=== PATIENT | female | born 1940 | race Caucasian/White ===

== ENCOUNTER 2018-07-04 06:50 | Emergency (ER) | payer OTHER ==
[~2018-07-04] VITALS: Ht 160 cm; Wt 117.9 kg
[2018-07-04 08:26] LABS: Basophils # (auto) 0.1 uL; Basophils % (auto) 0.4 % (0.0-2.0); Eosinophils # (auto) 0 uL; Eosinophils % (auto) 0.2 % (0.0-7.0); Hematocrit 39.1 % (36.0-46.0); Hemoglobin 12.5 g/dL (12.2-16.2); Lymphocytes # (auto) 0.9 uL; Lymphocytes % (auto) 6.7 % (10.0-50.0); Mean Corpuscular Hemoglobin 27.1 pg (28.0-32.0); Mean Corpuscular Hgb Conc. 32.1 g/dL (32.0-36.0); Mean Corpuscular Volume 84.3 fL (80.0-100.0); Monocytes # (auto) 0.5 uL; Neutrophils % (auto) 88.7 % (37.0-80.0); Platelet Count (auto) 281 10^3/uL (140-450); Red Blood Cells 4.63 10^6/uL (4.0-5.20); Red Cell Distribution Width 15.8 % (11.8-14.3); White Blood Cell 13.5 10^3/uL (4.4-10.8)
[2018-07-04 08:48] LABS: Albumin 3.2 g/dL (3.4-5.0); Calcium 8.4 mg/dL (8.5-10.1); Magnesium 1.8 mg/dL (1.6-2.6); Potassium 4.7 mmol/L (3.5-5.1)
[2018-07-04 08:53] LABS: BUN/Creatinine Ratio 21.4; Bilirubin, Total 0.8 mg/dL (0.2-1.0); Total Protein 7.7 g/dL (6.4-8.2)
[2018-07-04] MEDS ORDERED: SODIUM CHLORIDE 0.9% 1,000 ML IV ONE (09:15)
[2018-07-04] MEDS ORDERED: PIPERACILLIN-TAZOB 3.375GM 100 ML IV ONE (09:30)
[2018-07-04 10:44] LABS: Urine Bacteria FEW /hpf (None Seen); Urine Blood 2+ /uL (Negative); Urine Hyaline Cast FEW /lpf (0 - 2); Urine Specific Gravity 1.023 (1.001-1.035); Urine WBC 20 /hpf (0 - 5)
[2018-07-04] MEDS ORDERED: VANCOMYCIN 1GM/250ML 250 ML IV ONE (12:00)
[2018-07-04] MEDS ORDERED: ALBUTEROL SULF 2.5 MG/0.5ML(0.5%) NEB SOLN NEB ONE (13:30)
[2018-07-04] MEDS ORDERED: FUROSEMIDE 40 MG TAB PO ONE (14:30)
[2018-07-04 15:41] VITALS: BP 159/74
== END 2018-07-04 18:03 | disposition home or self-care (01) ==
LOC: EDBD 06:50 → ER 06:50
DX: J18.9 Pneumonia, unspecified organism (principal); M25.562 Pain in left knee; M25.561 Pain in right knee; G89.11 Acute pain due to trauma; E11.9 Type 2 diabetes mellitus without complications; I10 Essential (primary) hypertension; W06.XXXA Fall from bed, initial encounter; Y93.89 Activity, other specified; Y92.89 Other specified places as the place of occurrence of the external cause; Y99.8 Other external cause status
CPT/HCPCS: 36415; 71045; 73562; 80053; 81001; 83735; 83880; 84484; 85025; 87040; 93005; 94640; 96365; 96366; 96368; 99284; J2543; J3370; J7030; J7611

== ENCOUNTER 2019-07-12 10:37 | Inpatient (IN) | payer OTHER ==
[~2019-07-12] VITALS: Ht 162.6 cm; Wt 104.3 kg
[2019-07-12] MEDS ORDERED: SODIUM CHLORIDE 0.9% 1,000 ML IV ONE (11:18)
[2019-07-12 11:38] LABS: Basophils # (auto) 0.1 10 ^3/uL (0-0.2); Basophils % (auto) 0.6 % (0.0-2.0); Eosinophils # (auto) 0.1 10 ^3/uL (0-0.8); Lymphocytes # (auto) 1.7 10 ^3/uL (0.4-5.4); Mean Corpuscular Hgb Conc. 31.5 g/dL (32.0-36.0); Monocytes # (auto) 0.3 10 ^3/uL (0-1.3); Neutrophils # (auto) 7.6 10 ^3/uL (1.6-8.6); White Blood Cell 9.8 10^3/uL (4.4-10.8)
[2019-07-12 11:40] LABS: Eosinophils % (auto) 1.2 % (0.0-7.0); Hematocrit 37.9 % (36.0-46.0); Lymphocytes % (auto) 17.1 % (10.0-50.0); Mean Corpuscular Hemoglobin 26.3 pg (28.0-32.0); Mean Corpuscular Volume 83.4 fL (80.0-100.0); Monocytes % (auto) 3.3 % (0.0-12.0); Neutrophils % (auto) 77.8 % (37.0-80.0); Nucleated Red Blood Cells % 0.1 %; Platelet Count (auto) 332 10^3/uL (140-450); Red Blood Cells 4.55 10^6/uL (4.0-5.20); Red Cell Distribution Width 18.1 % (11.8-14.3)
[2019-07-12 11:54] LABS: INR 1.14 (0.9-1.15); Partial Thromboplastin Time 27.8 sec (23.64-32.05)
[2019-07-12 12:02] LABS: Albumin 2.8 g/dL (3.4-5.0); Anion Gap 3 (5-15); Blood Urea Nitrogen 31 mg/dL (7-18); Calcium 7.8 mg/dL (8.5-10.1); Carbon Dioxide 29 mmol/L (21-32); Chloride 107 mmol/L (98-107); Glucose 151 mg/dL (74-106); Potassium 4.7 mmol/L (3.5-5.1); Sodium 139 mmol/L (136-145)
[2019-07-12 12:08] LABS: Alanine Aminotransferase 20 U/L (13-56); Alkaline Phosphatase 95 U/L (45-117); Aspartate Aminotransferase 14 U/L (15-37); BUN/Creatinine Ratio 28.2; Bilirubin, Total 0.5 mg/dL (0.2-1.0); GFR African American 62 mL/min; GFR Non-African American 51 mL/min; Total Protein 7.5 g/dL (6.4-8.2)
[2019-07-12] MEDS ORDERED: FUROSEMIDE 40 MG/4 ML VIAL IV ONE (13:15)
[2019-07-12] MEDS ORDERED: SPIRONOLACTONE 25 MG TAB PO ONE (13:15)
[2019-07-12] MEDS ORDERED: METOPROLOL TARTRATE 1MG/1ML-5ML VIAL IV ONE (13:15)
[2019-07-12] MEDS: MAGNESIUM SULFATE 1GM/100ML 100 ML IV SCH ×2 (13:32→14:26)
[2019-07-12 13:52] LABS: Urine Bacteria NONE SEEN /hpf (None Seen); Urine Blood 1+ /uL (Negative); Urine Hyaline Cast FEW /lpf (0 - 2); Urine Mucus FEW (None Seen); Urine Specific Gravity 1.011 (1.001-1.035); Urine WBC 1 /hpf (0 - 5)
[2019-07-12] MEDS ORDERED: ATOR10TA52 (16:08)
[2019-07-12] MEDS ORDERED: SERT-274 PO (16:08)
[2019-07-12] MEDS ORDERED: LISI10TA6 PO (16:08)
[2019-07-12] MEDS ORDERED: GABA300C10 PO (16:08)
[2019-07-12] MEDS ORDERED: ALBUTEROL SULF 2.5 MG/0.5ML(0.5%) NEB SOLN NEB SCH (16:15)
[2019-07-12] MEDS ORDERED: hydrALAZINE HCL 20 MG/ML VL IV PRN (16:15)
[2019-07-12] MEDS ORDERED: MORPHINE SULF INJ 2 MG/ML SYRINGE 1ML IV PRN (16:15)
[2019-07-12] MEDS ORDERED: METOPROLOL SUCCINATE XL 50 MG TAB PO ONE (16:15)
[2019-07-12] MEDS ORDERED: NITROGLYCERIN 0.4 MG SL TAB SL PRN (16:15)
[2019-07-12] MEDS ORDERED: DEXTROSE (50%) 50ML SYRG IV PRN (16:15)
[2019-07-12 16:27] VITALS: BP 190/93
[2019-07-12 17:10] VITALS: BP 164/86
[2019-07-12 17:39] VITALS: BP 164/86
[2019-07-12] MEDS: FUROSEMIDE 100 MG/10ML VIAL IV SCH (18:00)
[2019-07-12] MEDS: ALBUTEROL SULF 2.5 MG/0.5ML(0.5%) NEB SOLN NEB SCH (18:11)
[2019-07-12] MEDS: SERTRALINE HCL 50 MG TAB PO SCH (18:24)
[2019-07-12] MEDS: LISINOPRIL 10 MG TAB PO SCH (18:24)
[2019-07-12] MEDS: GABAPENTIN 300 MG CAP PO SCH (18:24)
[2019-07-12] MEDS: ACCU-CHEK COMFORT CURVE STRIP VI SCH ×2 (18:25→23:09)
[2019-07-12] MEDS: InsuLIN REG 1unit/0.01ml Soln (100units/ml) SC SCH ×2 (19:29→22:00)
[2019-07-13] MEDS: ALBUTEROL SULF 2.5 MG/0.5ML(0.5%) NEB SOLN NEB SCH ×3 (00:16→13:21)
[2019-07-13 05:30] VITALS: BP 144/73
[2019-07-13] MEDS: ACCU-CHEK COMFORT CURVE STRIP VI SCH ×3 (06:18→16:59)
[2019-07-13] MEDS: FUROSEMIDE 100 MG/10ML VIAL IV SCH ×2 (06:18→16:59)
[2019-07-13] MEDS: InsuLIN REG 1unit/0.01ml Soln (100units/ml) SC SCH ×3 (06:18→16:59)
[2019-07-13 08:31] VITALS: BP 173/88
[2019-07-13] MEDS: GABAPENTIN 300 MG CAP PO SCH (09:56)
[2019-07-13] MEDS: SERTRALINE HCL 50 MG TAB PO SCH (09:57)
[2019-07-13] MEDS: LISINOPRIL 10 MG TAB PO SCH (09:57)
[2019-07-13] MEDS ORDERED: POTASSIUM CHL 20 Meq TABLET PO SCH (10:00)
[2019-07-13] MEDS ORDERED: ENOXAPARIN SOD 40 MG/0.4 ML SYRINGE SC SCH (10:00)
[2019-07-13 12:11] VITALS: BP 166/76
[2019-07-13] MEDS ORDERED: LISINOPRIL 10 MG TAB PO SCH (13:00)
[2019-07-13] MEDS ORDERED: FUROSEMIDE 40 MG/4 ML VIAL IV SCH (13:15)
[2019-07-13 16:42] VITALS: BP 167/84
== END 2019-07-13 16:56 | disposition home health service (06) | DRG 291 ==
LOC: ER 10:37 → TELE 10:38 → TELE-CENTR 17:12
PROVIDERS: ADMIT Hospitalist; ATTEND Hospitalist
DX: I11.0 Hypertensive heart disease with heart failure (principal); J96.01 Acute respiratory failure with hypoxia; E44.0 Moderate protein-calorie malnutrition; E11.21 Type 2 diabetes mellitus with diabetic nephropathy; E83.42 Hypomagnesemia; I50.9 Heart failure, unspecified; E78.5 Hyperlipidemia, unspecified; F32.9 Major depressive disorder, single episode, unspecified; E11.42 Type 2 diabetes mellitus with diabetic polyneuropathy; E66.9 Obesity, unspecified; Z68.39 Body mass index [BMI] 39.0-39.9, adult
CPT/HCPCS: 36415; 51702; 71046; 80053; 81001; 82962; 83735; 83880; 84443; 84484; 85025; 85610; 85730; 93005; 93306; 94640; 96361; 96365; 96366; 96375; G0378; J1815

== ENCOUNTER 2021-12-02 20:16 | Observation (INO) | payer OTHER ==
[~2021-12-02] VITALS: Ht 162.6 cm; Wt 113.8 kg
[~2021-12-02 20:16] MED LIST: ATOR10TA52; GABA300C10 PO; LISI-716 PO; SERT50TA19 PO
[2021-12-02 22:46] LABS: Basophils # (auto) 0 10 ^3/uL (0-0.2); Eosinophils # (auto) 0 10 ^3/uL (0-0.8); Eosinophils % (auto) 0.1 % (0.0-7.0); Lymphocytes % (auto) 9.8 % (10.0-50.0); Neutrophils # (auto) 11.8 10 ^3/uL (1.6-8.6)
[2021-12-02 22:47] LABS: Basophils % (auto) 0.2 % (0.0-2.0); Hematocrit 37.2 % (36.0-46.0); Hemoglobin 11.7 g/dL (12.2-16.2); Lymphocytes # (auto) 1.4 10 ^3/uL (0.4-5.4); Mean Corpuscular Hemoglobin 26.6 pg (28.0-32.0); Mean Corpuscular Hgb Conc. 31.6 g/dL (32.0-36.0); Mean Corpuscular Volume 84.2 fL (80.0-100.0); Monocytes # (auto) 0.6 10 ^3/uL (0-1.3); Monocytes % (auto) 4.3 % (0.0-12.0); Neutrophils % (auto) 85.6 % (37.0-80.0); Red Blood Cells 4.42 10^6/uL (4.0-5.20); Red Cell Distribution Width 14.5 % (11.8-14.3); White Blood Cell 13.8 10^3/uL (4.4-10.8)
[2021-12-02] MEDS ORDERED: DEXTROSE 50% SYRINGE 50 ML IV ONE (23:03)
[2021-12-02 23:06] LABS: Albumin 3.4 g/dL (3.4-5.0); BUN/Creatinine Ratio 21.5; Calcium 7.3 mg/dL (8.5-10.1); Magnesium 1.3 mg/dL (1.6-2.6)
[2021-12-02 23:08] LABS: Bilirubin, Total 0.4 mg/dL (0.2-1.0); Total Protein 6.7 g/dL (6.4-8.2)
[2021-12-02] MEDS ORDERED: DEXTROSE (50%) 50ML SYRG IV ONE (23:15)
[2021-12-02 23:30] LABS: INR 1.02 (0.9-1.15); Partial Thromboplastin Time 29.7 sec (24.6-33.4)
[2021-12-03] MEDS ORDERED: D5W/SOD CHLO 0.9% 1,000 ML IV ONE
[2021-12-03 00:18] LABS: Urine Amorphous Crystal MOD /hpf (None Seen); Urine Bacteria MANY /hpf (None Seen); Urine Blood 2+ /uL (Negative); Urine Mucus FEW (None Seen); Urine Specific Gravity 1.005 (1.001-1.035); Urine WBC 16 /hpf (0 - 5)
[2021-12-03] MEDS ORDERED: NITROGLYCERIN 0.4 MG SL TAB SL PRN (02:15)
[2021-12-03] MEDS ORDERED: MAGNESIUM SULFATE 1GM/100ML 100 ML IV ONE (02:15)
[2021-12-03] MEDS ORDERED: MORPHINE SULFATE INJ 2 MG/ml SYRG IV PRN (02:15)
[2021-12-03] MEDS ORDERED: SODIUM CHLORIDE 0.9% 1,000 ML IV ONE (02:15)
[2021-12-03] MEDS ORDERED: levoFLOXacin 500MG 100 ML IV SCH (03:00)
[2021-12-03] MEDS ORDERED: POTASSIUM CHL 20 Meq TABLET PO ONE (05:30)
[2021-12-03] MEDS ORDERED: POTASSIUM CHL 20MEQ/100ML 100 ML IV ONE (05:30)
[2021-12-03] MEDS: FUROSEMIDE 40 MG/4 ML VIAL IV SCH ×2 (06:18→18:16)
[2021-12-03 07:10] LABS: Basophils # (auto) 0.1 10 ^3/uL (0-0.2); Basophils % (auto) 0.6 % (0.0-2.0); Eosinophils # (auto) 0.1 10 ^3/uL (0-0.8); Hematocrit 38.3 % (36.0-46.0); Hemoglobin 12.8 g/dL (12.2-16.2); Mean Corpuscular Hemoglobin 27.5 pg (28.0-32.0); Mean Corpuscular Hgb Conc. 33.5 g/dL (32.0-36.0); Mean Corpuscular Volume 82.2 fL (80.0-100.0); Monocytes # (auto) 0.5 10 ^3/uL (0-1.3); Monocytes % (auto) 4.3 % (0.0-12.0); Neutrophils # (auto) 8.1 10 ^3/uL (1.6-8.6); Neutrophils % (auto) 75.1 % (37.0-80.0); Red Blood Cells 4.66 10^6/uL (4.0-5.20); Red Cell Distribution Width 14.9 % (11.8-14.3); White Blood Cell 10.8 10^3/uL (4.4-10.8)
[2021-12-03 07:29] LABS: Albumin 3.1 g/dL (3.4-5.0); Calcium 7.4 mg/dL (8.5-10.1); Potassium 4.4 mmol/L (3.5-5.1)
[2021-12-03 07:32] LABS: BUN/Creatinine Ratio 20.3; Bilirubin, Total 0.7 mg/dL (0.2-1.0)
[2021-12-03 19:35] VITALS: BP 134/77
== END 2021-12-03 21:35 | disposition home or self-care (01) ==
LOC: EDBD 20:16 → ER 20:18 → TELE 12-03 02:15
PROVIDERS: ADMIT Internal Medicine; ATTEND Internal Medicine
DX: I11.0 Hypertensive heart disease with heart failure (principal); Z20.822 Contact with and (suspected) exposure to COVID-19; I50.9 Heart failure, unspecified; N39.0 Urinary tract infection, site not specified; F03.90 Unspecified dementia, unspecified severity, without behavioral disturbance, psychotic disturbance, mood disturbance, and anxiety; I21.4 Non-ST elevation (NSTEMI) myocardial infarction; E11.649 Type 2 diabetes mellitus with hypoglycemia without coma; J18.9 Pneumonia, unspecified organism; I35.0 Nonrheumatic aortic (valve) stenosis; E87.6 Hypokalemia; R41.0 Disorientation, unspecified; Z79.899 Other long term (current) drug therapy; Z86.73 Personal history of transient ischemic attack (TIA), and cerebral infarction without residual deficits; Z98.891 History of uterine scar from previous surgery
CPT/HCPCS: 36415; 70450; 71045; 80053; 81001; 82962; 83735; 83880; 84484; 85025; 85610; 85730; 87426; 93005; 93306; 96361; 96365; 96367; 96375; 96376; 99285; G0378; J1940; J1956; J3475; J7042

== ENCOUNTER 2022-11-13 00:22 | Inpatient (IN) | payer OTHER ==
[~2022-11-13] VITALS: Ht 160 cm; Wt 99.8 kg
[~2022-11-13 00:22] MED LIST changes: +GABA-1250 PO; -GABA300C10 PO; -LISI-716 PO; +LISI10TA34 PO; +SERT-206 PO; -SERT50TA19 PO
[2022-11-13 00:45] VITALS: PULSE 53; RESP 18; O2SAT 92
[2022-11-13 01:16] LABS: Basophils # (auto) 0.1 10 ^3/uL (0-0.2); Basophils % (auto) 0.7 % (0.0-2.0); Eosinophils # (auto) 0.3 10 ^3/uL (0-0.8); Eosinophils % (auto) 2.1 % (0.0-7.0); Hematocrit 31.8 % (36.0-46.0); Hemoglobin 10.1 g/dL (12.2-16.2); Lymphocytes # (auto) 1.8 10 ^3/uL (0.4-5.4); Lymphocytes % (auto) 14.7 % (10.0-50.0); Mean Corpuscular Hemoglobin 27.4 pg (28.0-32.0); Mean Corpuscular Hgb Conc. 31.8 g/dL (32.0-36.0); Mean Corpuscular Volume 85.9 fL (80.0-100.0); Monocytes # (auto) 0.6 10 ^3/uL (0-1.3); Monocytes % (auto) 4.4 % (0.0-12.0); Neutrophils # (auto) 9.7 10 ^3/uL (1.6-8.6); Neutrophils % (auto) 78.1 % (37.0-80.0); Red Cell Distribution Width 15.9 % (11.8-14.3); White Blood Cell 12.4 10^3/uL (4.4-10.8)
[2022-11-13 01:41] LABS: Base Excess -6.8 mmol/L (-2.0-2.0)
[2022-11-13 01:47] LABS: Albumin 3.6 g/dL (3.2-4.8); Alkaline Phosphatase 79 U/L (46-116); Anion Gap 5 (5-15); Aspartate Aminotransferase < 8 U/L (13-40); BUN/Creatinine Ratio 24.2 (10.0-20.0); Blood Urea Nitrogen 51 mg/dL (9-23); Calcium 7.9 mg/dL (8.7-10.4); Carbon Dioxide 23 mmol/L (20-30); Chloride 109 mmol/L (98-107); Glucose 156 mg/dL (74-106); Potassium 5.3 mmol/L (3.5-5.1); Sodium 137 mmol/L (136-145)
[2022-11-13 01:48] LABS: Bilirubin, Total 0.3 mg/dL (0.2-1.0); Total Protein 6.7 g/dL (5.7-8.2)
[2022-11-13 01:52] LABS: Alanine Aminotransferase < 9 U/L (7-40)
[2022-11-13 03:01] LABS: Rapid Influenza A Negative (Negative); Rapid Influenza B Negative (Negative)
[2022-11-13 03:02] LABS: COVID19 ANTIGEN SOFIA FIA NEGATIVE (NEGATIVE)
[2022-11-13] MEDS ORDERED: FUROSEMIDE 40 MG/4 ML VIAL IV ONE (03:15)
[2022-11-13] MEDS ORDERED: PIPERACILLIN-TAZOB 3.375GM 100 ML IV ONE (03:15)
[2022-11-13] MEDS ORDERED: MORPHINE SULFATE INJ 2 MG/ml SYRG IV PRN (04:00)
[2022-11-13] MEDS ORDERED: ONDANSETRON HCL 4 MG/2 ML VIAL IV PRN (04:00)
[2022-11-13] MEDS ORDERED: ACETAMINOPHEN 325 MG TAB PO PRN (04:00)
[2022-11-13] MEDS ORDERED: DOCUSATE SOD 100 MG CAP PO PRN (04:00)
[2022-11-13] MEDS ORDERED: HYDROcodone-ACET 5/325MG TAB PO PRN (04:00)
[2022-11-13] MEDS ORDERED: NITROGLYCERIN 0.4 MG SL TAB SL PRN (04:00)
[2022-11-13] MEDS ORDERED: DEXTROSE (50%) 50ML SYRG IV PRN (04:00)
[2022-11-13 05:08] LABS: Albumin 3.5 g/dL (3.2-4.8); Alkaline Phosphatase 70 U/L (46-116); Anion Gap 6 (5-15); Aspartate Aminotransferase 10 U/L (13-40); BUN/Creatinine Ratio 21.4 (10.0-20.0); Blood Urea Nitrogen 45 mg/dL (9-23); Calcium 7.9 mg/dL (8.7-10.4); Carbon Dioxide 22 mmol/L (20-30); Chloride 109 mmol/L (98-107); Glucose 117 mg/dL (74-106); Potassium 5.5 mmol/L (3.5-5.1); Sodium 137 mmol/L (136-145)
[2022-11-13 05:09] LABS: Bilirubin, Total 0.4 mg/dL (0.2-1.0); Total Protein 6.5 g/dL (5.7-8.2)
[2022-11-13 05:21] LABS: Alanine Aminotransferase < 9 U/L (7-40)
[2022-11-13 06:08] LABS: Basophils # (auto) 0.1 10 ^3/uL (0-0.2); Basophils % (auto) 0.7 % (0.0-2.0); Eosinophils # (auto) 0.2 10 ^3/uL (0-0.8); Eosinophils % (auto) 2.2 % (0.0-7.0); Lymphocytes # (auto) 1.9 10 ^3/uL (0.4-5.4); Lymphocytes % (auto) 18.1 % (10.0-50.0); Mean Corpuscular Hemoglobin 28.1 pg (28.0-32.0); Mean Corpuscular Hgb Conc. 32.3 g/dL (32.0-36.0); Mean Corpuscular Volume 86.9 fL (80.0-100.0); Monocytes # (auto) 0.5 10 ^3/uL (0-1.3); Monocytes % (auto) 4.6 % (0.0-12.0); Neutrophils # (auto) 7.7 10 ^3/uL (1.6-8.6); Neutrophils % (auto) 74.4 % (37.0-80.0); Red Blood Cells 3.56 10^6/uL (4.0-5.20); Red Cell Distribution Width 15.8 % (11.8-14.3); White Blood Cell 10.3 10^3/uL (4.4-10.8)
[2022-11-13] MEDS: SODIUM CHLOR 0.9% PF (SALINE LOCK) 10ML VIAL/SYR IV SCH ×3 (06:29→21:24)
[2022-11-13] MEDS: InsuLIN REG 1unit/0.01ml Soln (100units/ml) SC SCH ×5 (06:46→21:30)
[2022-11-13] MEDS: ACCU-CHEK COMFORT CURVE STRIP VI SCH ×4 (06:46→21:26)
[2022-11-13 08:06] VITALS: PULSE 53; RESP 17; O2SAT 96
[2022-11-13] MEDS: cefTRIAXone 1GM/50ML D5W 50 ML IV SCH (09:13)
[2022-11-13] MEDS: FUROSEMIDE 40 MG/4 ML VIAL IV SCH (09:54)
[2022-11-13] MEDS: AZITHROMYCIN 500MG/ 250ML 250 ML IV SCH (09:55)
[2022-11-13] MEDS: FAMOTIDINE (10MG/ML) 2ML VL IV SCH ×2 (09:55→21:23)
[2022-11-13] MEDS: ASPirin 81 mg TAB PO SCH (09:55)
[2022-11-13] MEDS ORDERED: SODIUM ZIRCONIUM CYCL 10 GM PAK PO ONE (11:45)
[2022-11-13 13:49] LABS: Urine Bacteria FEW /hpf (None Seen); Urine Blood 1+ /uL (Negative); Urine Clarity Clear (Clear); Urine Color Colorless (Yellow); Urine Hyaline Cast FEW /lpf (0 - 2); Urine Protein, UAD Negative (Negative); Urine Specific Gravity 1.008 (1.001-1.035); Urine Urobilinogen Normal (Negative); Urine WBC 1 /hpf (0 - 5)
[2022-11-13] MEDS ORDERED: DONE1TAB88 PO (13:50)
[2022-11-13] MEDS ORDERED: GLIP10TA21 PO (13:50)
[2022-11-13] MEDS ORDERED: CITA-73 PO (13:50)
[2022-11-13] MEDS ORDERED: FLUT50SP NAS (13:50)
[2022-11-13] MEDS ORDERED: SUMA50TA16 PO (13:50)
[2022-11-13] MEDS ORDERED: METF-1145 PO (13:50)
[2022-11-13 13:56] LABS: Amphetamine Screen, Urine Neg (NEGATIVE); Barbiturate Scree,Urine Neg (NEGATIVE); Benzodiazephine Screen, Urine Neg (NEGATIVE); Cocaine Screen, Urine Neg (NEGATIVE); Opiate Scree,Urine Neg (NEGATIVE)
[2022-11-13 13:57] LABS: Cannabinoid Screen, Urine Neg (NEGATIVE); Phencyclidine Screen, Urine Neg (NEGATIVE)
[2022-11-13 13:58] LABS: Creatinine, Urine 22.39 mg/dL (30.0-125.0); Urine Protein/Creatinine Ratio 0.31
[2022-11-13 15:20] VITALS: BP_SYST 131; BP_DIAS 51; BP_DIAS 55; PULSE 57; RESP 18; TEMP 97.6; O2SAT 97
[2022-11-13 17:15] VITALS: BP 131/54; PULSE 57; RESP 18; TEMP 97.8; O2SAT 100
[2022-11-13] MEDS ORDERED: DEXTROSE 10% 1,000 ML IV ONE (17:30)
[2022-11-13 20:00] VITALS: PULSE 59; RESP 18
[2022-11-13] MEDS: ACCU-CHEK COMFORT CURVE STRIP VI ONE (21:26)
[2022-11-13 22:00] VITALS: BP 145/49; PULSE 57; RESP 20; TEMP 97.7; O2SAT 100
[2022-11-14] VITALS (9 sets, daily range): BP systolic 129–162; BP diastolic 42–73; PULSE 55–69; RESP 16–20; TEMP 97.7–98.3; O2SAT 96–99
[2022-11-14] MEDS: ACCU-CHEK COMFORT CURVE STRIP VI ONE (02:05)
[2022-11-14 06:22] LABS: Albumin 3.5 g/dL (3.2-4.8); Alkaline Phosphatase 63 U/L (46-116); Anion Gap 6 (5-15); Aspartate Aminotransferase < 8 U/L (13-40); BUN/Creatinine Ratio 22.2 (10.0-20.0); Bilirubin, Total 0.5 mg/dL (0.2-1.0); Blood Urea Nitrogen 45 mg/dL (9-23); Calcium 8.1 mg/dL (8.7-10.4); Carbon Dioxide 28 mmol/L (20-30); Chloride 106 mmol/L (98-107); Glucose 88 mg/dL (74-106); Potassium 4.9 mmol/L (3.5-5.1); Sodium 140 mmol/L (136-145); Total Protein 6.6 g/dL (5.7-8.2)
[2022-11-14 06:25] LABS: Basophils # (auto) 0.1 10 ^3/uL (0-0.2); Basophils % (auto) 0.7 % (0.0-2.0); Eosinophils # (auto) 0.2 10 ^3/uL (0-0.8); Hematocrit 32.6 % (36.0-46.0); Hemoglobin 10.5 g/dL (12.2-16.2); Lymphocytes # (auto) 1.5 10 ^3/uL (0.4-5.4); Lymphocytes % (auto) 14.2 % (10.0-50.0); Mean Corpuscular Hemoglobin 27.5 pg (28.0-32.0); Mean Corpuscular Hgb Conc. 32.3 g/dL (32.0-36.0); Mean Corpuscular Volume 85.1 fL (80.0-100.0); Monocytes # (auto) 0.6 10 ^3/uL (0-1.3); Monocytes % (auto) 5.3 % (0.0-12.0); Neutrophils # (auto) 8.3 10 ^3/uL (1.6-8.6); Neutrophils % (auto) 77.8 % (37.0-80.0); Red Blood Cells 3.84 10^6/uL (4.0-5.20); Red Cell Distribution Width 16.1 % (11.8-14.3); White Blood Cell 10.7 10^3/uL (4.4-10.8)
[2022-11-14 06:34] LABS: Alanine Aminotransferase < 9 U/L (7-40)
[2022-11-14] MEDS: InsuLIN REG 1unit/0.01ml Soln (100units/ml) SC SCH ×4 (06:34→22:00)
[2022-11-14] MEDS: ACCU-CHEK COMFORT CURVE STRIP VI SCH ×4 (06:34→22:43)
[2022-11-14] MEDS: SODIUM CHLOR 0.9% PF (SALINE LOCK) 10ML VIAL/SYR IV SCH ×3 (06:35→22:44)
[2022-11-14] MEDS: AZITHROMYCIN 500MG/ 250ML 250 ML IV SCH (10:04)
[2022-11-14] MEDS: cefTRIAXone 1GM/50ML D5W 50 ML IV SCH (10:05)
[2022-11-14] MEDS: FAMOTIDINE (10MG/ML) 2ML VL IV SCH ×2 (10:08→22:43)
[2022-11-14] MEDS: ASPirin 81 mg TAB PO SCH (10:08)
[2022-11-14] MEDS: FUROSEMIDE 40 MG/4 ML VIAL IV SCH (10:14)
[2022-11-14] MEDS ORDERED: GABA-1250 PO (10:15)
[2022-11-14] MEDS ORDERED: NIFE1TAB30 PO (10:16)
[2022-11-14] MEDS ORDERED: METO-289 PO (10:28)
[2022-11-14] MEDS: D5W/SOD CHLO 0.9% 1,000 ML IV SCH (11:15)
[2022-11-14] MEDS: GABAPENTIN 300 MG CAP PO SCH ×2 (15:16→22:00)
[2022-11-14] MEDS ORDERED: LORA-1121 PO (16:17)
[2022-11-14] MEDS ORDERED: QUET25TA37 PO (16:18)
[2022-11-14] MEDS ORDERED: GUAI200T6 PO (16:23)
[2022-11-14] MEDS ORDERED: FLUT1SPR5 (16:23)
[2022-11-14] MEDS ORDERED: KRIL1CAP14 PO (16:23)
[2022-11-14] MEDS ORDERED: LOPE1TAB9 PO (16:23)
[2022-11-14] MEDS ORDERED: GLIP10TA21 PO (16:23)
[2022-11-14] MEDS: LORazepam 0.5 MG TAB PO PRN (16:39)
[2022-11-14] MEDS ORDERED: LORazepam 2MG/ML-1ML VIAL IV ONE (17:45)
[2022-11-14] MEDS: CALCIUM ACETATE 667 MG CAP PO SCH (18:57)
[2022-11-14] MEDS ORDERED: HALOPERIDOL LACTATE 5 MG/ML INJ VIAL IM ONE (19:00)
[2022-11-14] MEDS: METOPROLOL SUCCINATE XL 50 MG TAB PO SCH (22:00)
[2022-11-14] MEDS: DONEPEZIL HYDROCHLORIDE 5 MG TAB PO SCH (22:00)
[2022-11-15] VITALS (8 sets, daily range): BP systolic 124–154; BP diastolic 43–79; PULSE 67–89; RESP 18–20; TEMP 98.1–98.5; O2SAT 98–100
[2022-11-15] MEDS: D5W/SOD CHLO 0.9% 1,000 ML IV SCH ×2 (04:37→08:10)
[2022-11-15] MEDS: SODIUM CHLOR 0.9% PF (SALINE LOCK) 10ML VIAL/SYR IV SCH ×3 (06:08→22:27)
[2022-11-15] MEDS: ACCU-CHEK COMFORT CURVE STRIP VI SCH ×2 (06:08→11:42)
[2022-11-15] MEDS: InsuLIN REG 1unit/0.01ml Soln (100units/ml) SC SCH ×2 (06:10→11:51)
[2022-11-15] MEDS: GABAPENTIN 300 MG CAP PO SCH ×3 (06:13→22:18)
[2022-11-15] MEDS: cefTRIAXone 1GM/50ML D5W 50 ML IV SCH (08:00)
[2022-11-15] MEDS: CALCIUM ACETATE 667 MG CAP PO SCH ×3 (08:04→17:30)
[2022-11-15] MEDS: CITALOPRAM HYDROBR 20 MG TAB PO SCH (08:06)
[2022-11-15] MEDS: FUROSEMIDE 40 MG/4 ML VIAL IV SCH (09:13)
[2022-11-15] MEDS: AZITHROMYCIN 500MG/ 250ML 250 ML IV SCH (09:14)
[2022-11-15] MEDS: ASPirin 81 mg TAB PO SCH (09:24)
[2022-11-15] MEDS: NIFEdipine ER 30 MG TAB PO SCH (09:25)
[2022-11-15] MEDS: FAMOTIDINE (10MG/ML) 2ML VL IV SCH ×2 (10:10→22:24)
[2022-11-15] MEDS: LORazepam 0.5 MG TAB PO PRN (13:39)
[2022-11-15] MEDS ORDERED: HYDROmorphone HCL 2 MG/ML VL/or syr IV PRN (20:00)
[2022-11-15 21:31] LABS: Urine Bacteria FEW /hpf (None Seen); Urine Blood 3+ /uL (Negative); Urine Clarity HAZY (Clear); Urine Color Yellow (Yellow); Urine Mucus FEW (None Seen); Urine Protein, UAD 1+ (Negative); Urine Specific Gravity 1.013 (1.001-1.035); Urine Urobilinogen Normal (Negative); Urine WBC 36 /hpf (0 - 5)
[2022-11-15] MEDS: METOPROLOL SUCCINATE XL 50 MG TAB PO SCH (22:00)
[2022-11-15] MEDS: DONEPEZIL HYDROCHLORIDE 5 MG TAB PO SCH (22:24)
[2022-11-16] VITALS (7 sets, daily range): BP systolic 122–143; BP diastolic 58–72; PULSE 74–99; RESP 16–20; TEMP 98.4–99.2; O2SAT 95–98
[2022-11-16] MEDS: GABAPENTIN 300 MG CAP PO SCH ×3 (05:48→22:11)
[2022-11-16] MEDS: SODIUM CHLOR 0.9% PF (SALINE LOCK) 10ML VIAL/SYR IV SCH ×3 (07:33→22:42)
[2022-11-16] MEDS: cefTRIAXone 1GM/50ML D5W 50 ML IV SCH (09:56)
[2022-11-16] MEDS: CITALOPRAM HYDROBR 20 MG TAB PO SCH (09:56)
[2022-11-16] MEDS: ASPirin 81 mg TAB PO SCH (09:56)
[2022-11-16] MEDS: FUROSEMIDE 40 MG/4 ML VIAL IV SCH (09:57)
[2022-11-16] MEDS: NIFEdipine ER 30 MG TAB PO SCH (09:57)
[2022-11-16] MEDS: CALCIUM ACETATE 667 MG CAP PO SCH ×3 (09:57→18:04)
[2022-11-16] MEDS: AZITHROMYCIN 500MG/ 250ML 250 ML IV SCH (10:46)
[2022-11-16] MEDS: DONEPEZIL HYDROCHLORIDE 5 MG TAB PO SCH (22:11)
[2022-11-16] MEDS: METOPROLOL SUCCINATE XL 50 MG TAB PO SCH (22:16)
[2022-11-17] VITALS (7 sets, daily range): BP systolic 117–135; BP diastolic 56–67; PULSE 68–77; RESP 15–19; TEMP 98.5–99.2; O2SAT 94–98
[2022-11-17] MEDS: LORazepam 0.5 MG TAB PO PRN (00:13)
[2022-11-17] MEDS: GABAPENTIN 300 MG CAP PO SCH ×3 (05:31→22:00)
[2022-11-17] MEDS: SODIUM CHLOR 0.9% PF (SALINE LOCK) 10ML VIAL/SYR IV SCH ×3 (05:32→22:00)
[2022-11-17] MEDS: cefTRIAXone 1GM/50ML D5W 50 ML IV SCH (08:55)
[2022-11-17] MEDS: ASPirin 81 mg TAB PO SCH (08:56)
[2022-11-17] MEDS: FUROSEMIDE 40 MG/4 ML VIAL IV SCH (08:56)
[2022-11-17] MEDS: NIFEdipine ER 30 MG TAB PO SCH (08:56)
[2022-11-17] MEDS: CALCIUM ACETATE 667 MG CAP PO SCH ×3 (08:56→18:04)
[2022-11-17] MEDS: CITALOPRAM HYDROBR 20 MG TAB PO SCH (08:56)
[2022-11-17] MEDS ORDERED: ALBUAER3 IN (10:52)
[2022-11-17] MEDS ORDERED: METH4PAK PO (10:52)
[2022-11-17] MEDS ORDERED: AZIT500T66 PO (10:52)
[2022-11-17] MEDS: AZITHROMYCIN 500MG/ 250ML 250 ML IV SCH (10:55)
[2022-11-17 12:02] LABS: Carbon Dioxide 33 mmol/L (20-30)
[2022-11-17 12:03] LABS: Calcium 8.6 mg/dL (8.5-10.1)
[2022-11-17 12:07] LABS: Glucose 204 mg/dL (74-106)
[2022-11-17 12:08] LABS: BUN/Creatinine Ratio 18.7 (10.0-20.0); Blood Urea Nitrogen 34 mg/dL (9-23)
[2022-11-17 12:43] LABS: Anion Gap 5 (5-15); Chloride 97 mmol/L (98-107); Potassium 4.2 mmol/L (3.5-5.1)
[2022-11-17 12:50] LABS: Sodium 135 mmol/L (136-145)
[2022-11-17] MEDS: METOPROLOL SUCCINATE XL 50 MG TAB PO SCH (22:00)
[2022-11-17] MEDS: DONEPEZIL HYDROCHLORIDE 5 MG TAB PO SCH (22:00)
[2022-11-18 05:00] VITALS: BP 109/51; PULSE 78; RESP 16; TEMP 98.9; O2SAT 97
[2022-11-18] MEDS: GABAPENTIN 300 MG CAP PO SCH ×2 (05:24→14:38)
[2022-11-18] MEDS: SODIUM CHLOR 0.9% PF (SALINE LOCK) 10ML VIAL/SYR IV SCH ×2 (05:25→14:00)
[2022-11-18 08:00] VITALS: PULSE 95
[2022-11-18 08:06] LABS: Cancer Antigen (CA) 125 68.6 U/mL (0.0-38.1)
[2022-11-18] MEDS: cefTRIAXone 1GM/50ML D5W 50 ML IV SCH (08:31)
[2022-11-18] MEDS: CALCIUM ACETATE 667 MG CAP PO SCH ×3 (08:31→18:00)
[2022-11-18 08:32] VITALS: BP 107/37; PULSE 89; RESP 17; TEMP 99.4; O2SAT 96
[2022-11-18] MEDS: FUROSEMIDE 40 MG/4 ML VIAL IV SCH (08:32)
[2022-11-18] MEDS: AZITHROMYCIN 500MG/ 250ML 250 ML IV SCH (08:32)
[2022-11-18] MEDS: CITALOPRAM HYDROBR 20 MG TAB PO SCH (08:33)
[2022-11-18] MEDS: ASPirin 81 mg TAB PO SCH (08:33)
[2022-11-18] MEDS: NIFEdipine ER 30 MG TAB PO SCH (08:39)
[2022-11-18 12:39] VITALS: BP 111/43; PULSE 85; RESP 18; TEMP 98.8; O2SAT 93
[2022-11-18 14:08] LABS: COVID19 ANTIGEN SOFIA FIA NEGATIVE (NEGATIVE)
[2022-11-18 16:55] VITALS: BP 108/44; PULSE 83; RESP 18; TEMP 98.4; O2SAT 94
== END 2022-11-18 19:30 | DRG 871 ==
LOC: ER 00:22 → EDBD 00:22 → TELE 04:07 → TELE-WESTW 15:23
PROVIDERS: ADMIT Nurse Practitioner Family; ATTEND Family Medicine
DX: A41.9 Sepsis, unspecified organism (principal); G93.41 Metabolic encephalopathy; N17.0 Acute kidney failure with tubular necrosis; I50.33 Acute on chronic diastolic (congestive) heart failure; J15.6 Pneumonia due to other Gram-negative bacteria; J15.9 Unspecified bacterial pneumonia; I13.0 Hypertensive heart and chronic kidney disease with heart failure and stage 1 through stage 4 chronic kidney disease, or unspecified chronic kidney disease; N18.4 Chronic kidney disease, stage 4 (severe); E66.9 Obesity, unspecified; E87.5 Hyperkalemia; R00.1 Bradycardia, unspecified; F03.90 Unspecified dementia, unspecified severity, without behavioral disturbance, psychotic disturbance, mood disturbance, and anxiety; E27.8 Other specified disorders of adrenal gland; D63.1 Anemia in chronic kidney disease; N83.209 Unspecified ovarian cyst, unspecified side; Z79.899 Other long term (current) drug therapy; Z51.5 Encounter for palliative care; Z83.3 Family history of diabetes mellitus; Z99.81 Dependence on supplemental oxygen; Z68.36 Body mass index [BMI] 36.0-36.9, adult
CPT/HCPCS: 36415; 36600; 70450; 71045; 74176; 76775; 80048; 80053; 80307; 81001; 82140; 82306; 82378; 82570; 82805; 82962; 83036; 83605; 83880; 83970; 84100; 84156; 84300; 84484; 85025; 86304; 87040; 87086; 87426; 87804; 93306; 94640; 96365; 96366; 96367; 96375; 97110; 97116; 97163; 97530; G0378; J0696; J1815; J2543; J3490; J7042

== ENCOUNTER 2023-01-18 14:10 | Inpatient (IN) | payer OTHER, MEDICARE ==
[~2023-01-18] VITALS: Ht 165.1 cm; Wt 92.4 kg
[~2023-01-18 14:10] MED LIST changes: +ALBUAER3 IN; +AZIT500T66 PO; +CITA-73 PO; +DONE1TAB88 PO; +FLUT1SPR5; +FLUT50SP NAS; +GLIP10TA21 PO; +GUAI200T6 PO; +KRIL1CAP14 PO; +LOPE1TAB9 PO; +LORA-1121 PO; +METF-1145 PO; +METH4PAK PO; +METO-289 PO; +NIFE1TAB30 PO; +QUET25TA37 PO; +SUMA50TA16 PO
[2023-01-18 14:50] VITALS: PULSE 66; RESP 20; O2SAT 99
[2023-01-18] MEDS ORDERED: SODIUM CHLORIDE 0.9% 1,000 ML IV ONE (15:30)
[2023-01-18] MEDS ORDERED: FUROSEMIDE 40 MG/4 ML VIAL IV ONE (15:30)
[2023-01-18] MEDS ORDERED: cefTRIAXone 1GM/50ML D5W 50 ML IV ONE (15:30)
[2023-01-18] MEDS ORDERED: AZITHROMYCIN 500MG/ 250ML 250 ML IV ONE (15:30)
[2023-01-18 15:37] LABS: Basophils # (auto) 0.1 10 ^3/uL (0-0.2); Eosinophils # (auto) 0.1 10 ^3/uL (0-0.8); Hemoglobin 9.6 g/dL (12.2-16.2); Lymphocytes # (auto) 1.7 10 ^3/uL (0.4-5.4); Monocytes # (auto) 0.3 10 ^3/uL (0-1.3); Neutrophils % (auto) 74.6 % (37.0-80.0)
[2023-01-18 15:39] LABS: Eosinophils % (auto) 1.3 % (0.0-7.0); Hematocrit 30.1 % (36.0-46.0); Mean Corpuscular Hemoglobin 26.9 pg (28.0-32.0); Mean Corpuscular Hgb Conc. 31.8 g/dL (32.0-36.0); Mean Corpuscular Volume 84.5 fL (80.0-100.0); Monocytes % (auto) 3.1 % (0.0-12.0); Neutrophils # (auto) 6.3 10 ^3/uL (1.6-8.6); Nucleated Red Blood Cells % 0.1 %; Red Blood Cells 3.57 10^6/uL (4.0-5.20); White Blood Cell 8.4 10^3/uL (4.4-10.8)
[2023-01-18 15:40] LABS: Urine Bacteria FEW /hpf (None Seen); Urine Blood TRACE /uL (Negative); Urine Clarity Clear (Clear); Urine Color Colorless (Yellow); Urine Protein, UAD 1+ (Negative); Urine Specific Gravity 1.013 (1.001-1.035); Urine Urobilinogen Normal (Negative); Urine WBC 11 /hpf (0 - 5); Urine pH 5.5 (5.0-8.0)
[2023-01-18 15:52] LABS: Amphetamine Screen, Urine Neg (NEGATIVE); Barbiturate Scree,Urine Neg (NEGATIVE); Benzodiazephine Screen, Urine Neg (NEGATIVE); Cannabinoid Screen, Urine Neg (NEGATIVE); Cocaine Screen, Urine Neg (NEGATIVE); Opiate Scree,Urine Pos (NEGATIVE); Phencyclidine Screen, Urine Neg (NEGATIVE)
[2023-01-18 15:56] LABS: Alanine Aminotransferase < 9 U/L (7-40); Albumin 3.7 g/dL (3.2-4.8); Alkaline Phosphatase 100 U/L (46-116); Anion Gap 3 (5-15); Aspartate Aminotransferase 10 U/L (13-40); BUN/Creatinine Ratio 25.8 (10.0-20.0); Bilirubin, Total 0.5 mg/dL (0.2-1.0); Blood Urea Nitrogen 34 mg/dL (9-23); Calcium 8.5 mg/dL (8.5-10.1); Carbon Dioxide 35 mmol/L (20-30); Chloride 107 mmol/L (98-107); Glucose 127 mg/dL (74-106); Potassium 4.7 mmol/L (3.5-5.1); Sodium 145 mmol/L (136-145); Total Protein 6.8 g/dL (5.7-8.2)
[2023-01-18 16:43] LABS: INR 1.14 (0.9-1.15); Partial Thromboplastin Time 30.7 SEC (24.5-34.5); Prothrombin Time 11.9 sec (9.3-11.8)
[2023-01-18] MEDS ORDERED: NITROGLYCERIN 0.4 MG SL TAB SL PRN (18:45)
[2023-01-18] MEDS ORDERED: ALBUTEROL MEDNEB 2.5 mg/3ml NEB NEB PRN (18:45)
[2023-01-18] MEDS ORDERED: MORPHINE SULFATE INJ 2 MG/ml SYRG IV PRN (18:45)
[2023-01-18] MEDS ORDERED: DEXTROSE (50%) 50ML SYRG IV PRN (18:45)
[2023-01-18] MEDS ORDERED: hydrALAZINE HCL 20 MG/ML VL IV PRN (18:45)
[2023-01-18] MEDS ORDERED: ACETAMINOPHEN 325 MG TAB PO PRN (18:45)
[2023-01-18 19:15] VITALS: PULSE 70; RESP 20; O2SAT 97
[2023-01-18 19:16] VITALS: BP 166/65; PULSE 65; RESP 16; TEMP 98; O2SAT 96
[2023-01-18 19:55] LABS: Triglycerides 95 mg/dL (< 150)
[2023-01-18 19:56] LABS: LDL Cholesterol 44 mg/dL (< 100)
[2023-01-18 19:57] LABS: Cholesterol 91 mg/dL (< 200); HDL Cholesterol 28 mg/dL (40-59)
[2023-01-18] MEDS: DONEPEZIL HYDROCHLORIDE 5 MG TAB PO SCH (22:01)
[2023-01-18] MEDS: ACCU-CHEK COMFORT CURVE STRIP VI SCH (22:02)
[2023-01-18] MEDS: METOPROLOL SUCCINATE XL 50 MG TAB PO SCH (22:02)
[2023-01-18] MEDS: InsuLIN REG 1unit/0.01ml Soln (100units/ml) SC SCH (22:02)
[2023-01-18] MEDS: QUEtiapine FUMARATE 25 MG TAB PO SCH (22:02)
[2023-01-18] MEDS: GABAPENTIN 300 MG CAP PO SCH (22:02)
[2023-01-18 22:12] VITALS: PULSE 64; RESP 20; O2SAT 95
[2023-01-18] MEDS: IPRATROPIUM BROM 0.5 MG/2.5ML INH SOL NEB SCH (22:13)
[2023-01-18] MEDS: ALBUTEROL MEDNEB 2.5 mg/3ml NEB NEB SCH (22:13)
[2023-01-18 22:19] VITALS: PULSE 68; RESP 18; O2SAT 99
[2023-01-18 22:47] VITALS: PULSE 64; PULSE 68; RESP 18; O2SAT 96; O2SAT 99
[2023-01-19] VITALS (20 sets, daily range): BP systolic 123–155; BP diastolic 46–63; PULSE 60–88; RESP 16–20; TEMP 97.8–98.8; O2SAT 92–100
[2023-01-19] MEDS: ALBUTEROL MEDNEB 2.5 mg/3ml NEB NEB SCH ×6 (02:27→22:24)
[2023-01-19] MEDS: IPRATROPIUM BROM 0.5 MG/2.5ML INH SOL NEB SCH ×6 (02:27→22:24)
[2023-01-19 05:57] LABS: Basophils # (auto) 0.1 10 ^3/uL (0-0.2); Eosinophils # (auto) 0.2 10 ^3/uL (0-0.8); Eosinophils % (auto) 2.2 % (0.0-7.0); Hemoglobin 9.2 g/dL (12.2-16.2); Lymphocytes # (auto) 1.5 10 ^3/uL (0.4-5.4); Lymphocytes % (auto) 20.5 % (10.0-50.0); Mean Corpuscular Hgb Conc. 31.8 g/dL (32.0-36.0); Mean Corpuscular Volume 84.8 fL (80.0-100.0); Monocytes # (auto) 0.4 10 ^3/uL (0-1.3); Monocytes % (auto) 5.3 % (0.0-12.0); Neutrophils # (auto) 5.3 10 ^3/uL (1.6-8.6); Red Blood Cells 3.42 10^6/uL (4.0-5.20); Red Cell Distribution Width 17.1 % (11.8-14.3); White Blood Cell 7.4 10^3/uL (4.4-10.8)
[2023-01-19] MEDS: GABAPENTIN 300 MG CAP PO SCH ×3 (06:00→21:33)
[2023-01-19 06:25] LABS: Albumin 3.6 g/dL (3.2-4.8); Alkaline Phosphatase 58 U/L (46-116); Anion Gap 4 (5-15); Aspartate Aminotransferase 8 U/L (13-40); BUN/Creatinine Ratio 23.5 (10.0-20.0); Bilirubin, Total 0.5 mg/dL (0.2-1.0); Blood Urea Nitrogen 27 mg/dL (9-23); Calcium 8.4 mg/dL (8.7-10.4); Carbon Dioxide 36 mmol/L (20-30); Chloride 104 mmol/L (98-107); Glucose 98 mg/dL (74-106); Potassium 4.3 mmol/L (3.5-5.1); Sodium 144 mmol/L (136-145); Total Protein 6.7 g/dL (5.7-8.2)
[2023-01-19 06:38] LABS: Alanine Aminotransferase < 9 U/L (7-40)
[2023-01-19] MEDS: InsuLIN REG 1unit/0.01ml Soln (100units/ml) SC SCH ×4 (07:02→21:34)
[2023-01-19] MEDS: ACCU-CHEK COMFORT CURVE STRIP VI SCH ×4 (07:02→21:33)
[2023-01-19] MEDS: ENOXAPARIN SOD 40 MG/0.4 ML SYRINGE SC SCH (11:28)
[2023-01-19] MEDS: SERTRALINE HCL 50 MG TAB PO SCH (11:28)
[2023-01-19] MEDS: cefTRIAXone 1GM/50ML D5W 50 ML IV SCH (11:29)
[2023-01-19] MEDS: LISINOPRIL 10 MG TAB PO SCH (11:29)
[2023-01-19] MEDS: CITALOPRAM HYDROBR 20 MG TAB PO SCH (11:29)
[2023-01-19] MEDS: AZITHROMYCIN 500MG/ 250ML 250 ML IV SCH (11:30)
[2023-01-19 17:08] LABS: COVID19 ANTIGEN SOFIA FIA NEGATIVE (NEGATIVE); Rapid Influenza A Negative (Negative); Rapid Influenza B Negative (Negative)
[2023-01-19] MEDS: METOPROLOL SUCCINATE XL 50 MG TAB PO SCH (21:33)
[2023-01-19] MEDS: QUEtiapine FUMARATE 25 MG TAB PO SCH (21:33)
[2023-01-19] MEDS: DONEPEZIL HYDROCHLORIDE 5 MG TAB PO SCH (21:33)
[2023-01-20] VITALS (17 sets, daily range): BP systolic 107–149; BP diastolic 43–69; PULSE 62–77; RESP 15–20; TEMP 97.6–98.7; O2SAT 90–99
[2023-01-20] MEDS: IPRATROPIUM BROM 0.5 MG/2.5ML INH SOL NEB SCH ×6 (02:00→22:48)
[2023-01-20] MEDS: ALBUTEROL MEDNEB 2.5 mg/3ml NEB NEB SCH ×6 (02:00→22:48)
[2023-01-20] MEDS: InsuLIN REG 1unit/0.01ml Soln (100units/ml) SC SCH ×4 (06:07→22:05)
[2023-01-20] MEDS: GABAPENTIN 300 MG CAP PO SCH ×3 (06:07→22:04)
[2023-01-20] MEDS: ACCU-CHEK COMFORT CURVE STRIP VI SCH ×4 (06:07→22:04)
[2023-01-20] MEDS: ENOXAPARIN SOD 40 MG/0.4 ML SYRINGE SC SCH (09:34)
[2023-01-20] MEDS: SERTRALINE HCL 50 MG TAB PO SCH (09:34)
[2023-01-20] MEDS: CITALOPRAM HYDROBR 20 MG TAB PO SCH (09:35)
[2023-01-20] MEDS: LISINOPRIL 10 MG TAB PO SCH (09:35)
[2023-01-20] MEDS: cefTRIAXone 1GM/50ML D5W 50 ML IV SCH (09:38)
[2023-01-20] MEDS: AZITHROMYCIN 500MG/ 250ML 250 ML IV SCH (11:03)
[2023-01-20] MEDS: DOCUSATE SOD 100 MG CAP PO SCH (22:04)
[2023-01-20] MEDS: QUEtiapine FUMARATE 25 MG TAB PO SCH (22:04)
[2023-01-20] MEDS: DONEPEZIL HYDROCHLORIDE 5 MG TAB PO SCH (22:04)
[2023-01-20] MEDS: METOPROLOL SUCCINATE XL 50 MG TAB PO SCH (22:04)
[2023-01-21] VITALS (14 sets, daily range): BP systolic 114–142; BP diastolic 45–69; PULSE 56–69; RESP 16–20; TEMP 36.4; O2SAT 94–99
[2023-01-21] MEDS: ALBUTEROL MEDNEB 2.5 mg/3ml NEB NEB SCH ×4 (03:48→14:22)
[2023-01-21] MEDS: IPRATROPIUM BROM 0.5 MG/2.5ML INH SOL NEB SCH ×4 (03:48→14:23)
[2023-01-21] MEDS: ACCU-CHEK COMFORT CURVE STRIP VI SCH ×2 (06:06→11:59)
[2023-01-21] MEDS: InsuLIN REG 1unit/0.01ml Soln (100units/ml) SC SCH ×2 (06:06→12:04)
[2023-01-21] MEDS: GABAPENTIN 300 MG CAP PO SCH (06:06)
[2023-01-21] MEDS ORDERED: METH4PAK PO (08:05)
[2023-01-21] MEDS ORDERED: AZIT500T66 PO (08:05)
[2023-01-21] MEDS ORDERED: BACDST PO (08:05)
[2023-01-21] MEDS: DOCUSATE SOD 100 MG CAP PO SCH (10:00)
[2023-01-21] MEDS: ENOXAPARIN SOD 40 MG/0.4 ML SYRINGE SC SCH (10:26)
[2023-01-21] MEDS: CITALOPRAM HYDROBR 20 MG TAB PO SCH (10:26)
[2023-01-21] MEDS: LISINOPRIL 10 MG TAB PO SCH (10:26)
[2023-01-21] MEDS: SERTRALINE HCL 50 MG TAB PO SCH (10:27)
[2023-01-21] MEDS: AZITHROMYCIN 500MG/ 250ML 250 ML IV SCH (10:27)
[2023-01-21] MEDS: cefTRIAXone 1GM/50ML D5W 50 ML IV SCH (10:28)
== END 2023-01-21 15:00 | disposition hospice, home (50) | DRG 871 ==
LOC: EDBD 14:10 → ER 14:10 → TELE 18:37 → TELE-CENTR 22:25
PROVIDERS: ADMIT Nurse Practitioner Family; ATTEND Family Medicine
DX: A41.51 Sepsis due to Escherichia coli [E. coli] (principal); G93.41 Metabolic encephalopathy; J18.9 Pneumonia, unspecified organism; N17.0 Acute kidney failure with tubular necrosis; I50.43 Acute on chronic combined systolic (congestive) and diastolic (congestive) heart failure; F03.C3 Unspecified dementia, severe, with mood disturbance; N39.0 Urinary tract infection, site not specified; J44.0 Chronic obstructive pulmonary disease with (acute) lower respiratory infection; Z16.23 Resistance to quinolones and fluoroquinolones; D63.8 Anemia in other chronic diseases classified elsewhere; E78.00 Pure hypercholesterolemia, unspecified; R09.89 Other specified symptoms and signs involving the circulatory and respiratory systems; Z20.822 Contact with and (suspected) exposure to COVID-19; E11.9 Type 2 diabetes mellitus without complications; E66.01 Morbid (severe) obesity due to excess calories; F32.A Depression, unspecified; R32 Unspecified urinary incontinence; I11.0 Hypertensive heart disease with heart failure; Z68.36 Body mass index [BMI] 36.0-36.9, adult; Z51.5 Encounter for palliative care; Z87.440 Personal history of urinary (tract) infections; Z71.3 Dietary counseling and surveillance
CPT/HCPCS: 36415; 70450; 71045; 80053; 80061; 80307; 81001; 82962; 83036; 83605; 83880; 84443; 84484; 85025; 85610; 85730; 87040; 87081; 87086; 87088; 87186; 87426; 87804; 93005; 94640; 96365; 96375; 97163; G0378; J0696; J1815

== ENCOUNTER 2023-01-27 11:09 | Inpatient (IN) | payer OTHER, MEDICARE ==
[~2023-01-27] VITALS: Ht 167.6 cm; Wt 90.9 kg
[2023-01-27] VITALS (13 sets, daily range): BP systolic 108–135; BP diastolic 40–82; PULSE 60–76; RESP 15–18; O2SAT 92–100
[~2023-01-27 11:09] MED LIST changes: -ATOR10TA52; +ATOR10TA52 PO; +BACDST PO
[2023-01-27] MEDS ORDERED: ALBUTEROL MEDNEB 2.5 mg/3ml NEB NEB ONE ×3 (11:15→14:30)
[2023-01-27] MEDS ORDERED: IPRATROPIUM BROM 0.5 MG/2.5ML INH SOL NEB ONE (11:15)
[2023-01-27] MEDS ORDERED: FUROSEMIDE 100 MG/10ML VIAL IV ONE (11:15)
[2023-01-27] MEDS ORDERED: PIPERACILLIN-TAZOB 3.375GM 100 ML IV ONE (11:15)
[2023-01-27] MEDS ORDERED: DexAMETHasone SOD PHOS 10MG/1ML VIAL INJ IV ONE (11:15)
[2023-01-27 11:40] LABS: Base Excess -5.4 mmol/L (-2.0-2.0)
[2023-01-27 11:42] LABS: Basophils # (auto) 0.1 10 ^3/uL (0-0.2); Eosinophils # (auto) 0 10 ^3/uL (0-0.8); Hemoglobin 8.7 g/dL (12.2-16.2); Red Cell Distribution Width 17.9 % (11.8-14.3); White Blood Cell 16.3 10^3/uL (4.4-10.8)
[2023-01-27 11:44] LABS: Basophils % (auto) 0.4 % (0.0-2.0); Hematocrit 27.8 % (36.0-46.0); Lymphocytes # (auto) 1.8 10 ^3/uL (0.4-5.4); Lymphocytes % (auto) 10.9 % (10.0-50.0); Mean Corpuscular Hemoglobin 26.7 pg (28.0-32.0); Mean Corpuscular Hgb Conc. 31.2 g/dL (32.0-36.0); Mean Corpuscular Volume 85.5 fL (80.0-100.0); Monocytes # (auto) 0.8 10 ^3/uL (0-1.3); Monocytes % (auto) 4.6 % (0.0-12.0); Neutrophils # (auto) 13.7 10 ^3/uL (1.6-8.6); Neutrophils % (auto) 84.1 % (37.0-80.0); Nucleated Red Blood Cells % 0.1 %; Red Blood Cells 3.25 10^6/uL (4.0-5.20)
[2023-01-27 12:09] LABS: INR 1.11 (0.9-1.15); Prothrombin Time 11.6 sec (9.3-11.8)
[2023-01-27 12:14] LABS: Alanine Aminotransferase 13 U/L (7-40); Alkaline Phosphatase 69 U/L (46-116); Anion Gap 6 (5-15); Aspartate Aminotransferase 11 U/L (13-40); BUN/Creatinine Ratio 24.2 (10.0-20.0); Carbon Dioxide 27 mmol/L (20-30); Chloride 100 mmol/L (98-107); Sodium 133 mmol/L (136-145)
[2023-01-27 12:15] LABS: Bilirubin, Total 0.2 mg/dL (0.2-1.0); Total Protein 7.1 g/dL (5.7-8.2)
[2023-01-27 12:17] LABS: Glucose 155 mg/dL (74-106)
[2023-01-27 12:45] LABS: Blood Urea Nitrogen 82 mg/dL (9-23); Potassium 6.3 mmol/L (3.5-5.1)
[2023-01-27] MEDS ORDERED: MORPHINE SULFATE INJ 2 MG/ml SYRG IV PRN (13:00)
[2023-01-27] MEDS ORDERED: InsuLIN REG 1unit/0.01ml Soln (100units/ml) IV ONE ×2 (13:00→14:15)
[2023-01-27] MEDS ORDERED: DEXTROSE (50%) 50ML SYRG IV ONE ×2 (13:00→14:15)
[2023-01-27] MEDS ORDERED: ACETAMINOPHEN 325 MG TAB PO PRN (13:00)
[2023-01-27] MEDS ORDERED: ONDANSETRON HCL 4 MG/2 ML VIAL IV PRN (13:00)
[2023-01-27] MEDS ORDERED: CALCIUM GLUC 1,000mg/50ml-NS 50 ML IV ONE ×3 (13:00→17:15)
[2023-01-27] MEDS ORDERED: SODIUM ZIRCONIUM CYCL 10 GM PAK PO ONE (13:00)
[2023-01-27] MEDS ORDERED: NITROGLYCERIN 0.4 MG SL TAB SL PRN (13:00)
[2023-01-27] MEDS ORDERED: ALBUTEROL MEDNEB 2.5 mg/3ml NEB NEB PRN (13:00)
[2023-01-27] MEDS ORDERED: VANCOMYCIN PER PHARMACY 0 MG IV SCH (13:15)
[2023-01-27] MEDS ORDERED: DEXTROSE (50%) 50ML SYRG IV PRN (13:15)
[2023-01-27] MEDS ORDERED: CEFEPIME 1GM/ 50ML 50 ML IV ONE (13:15)
[2023-01-27 13:19] LABS: Urine Bacteria NONE SEEN /hpf (None Seen); Urine Blood Negative /uL (Negative); Urine Budding Yeast FEW /hpf (None Seen); Urine Clarity HAZY (Clear); Urine Color Yellow (Yellow); Urine Hyaline Cast FEW /lpf (0 - 2); Urine Mucus FEW (None Seen); Urine Protein, UAD TRACE (Negative); Urine Specific Gravity 1.015 (1.001-1.035); Urine Urobilinogen Normal (Negative); Urine WBC 68 /hpf (0 - 5)
[2023-01-27] MEDS ORDERED: VANCOMYCIN 1GM/250ML 250 ML IV ONE (13:30)
[2023-01-27] MEDS: ALBUTEROL MEDNEB 2.5 mg/3ml NEB NEB SCH ×3 (13:43→22:36)
[2023-01-27] MEDS ORDERED: ALBUTEROL SULF 2.5 MG/0.5ML(0.5%) NEB SOLN NEB ONE (13:44)
[2023-01-27] MEDS: IPRATROPIUM BROM 0.5 MG/2.5ML INH SOL NEB SCH ×3 (13:44→22:36)
[2023-01-27 13:53] LABS: Base Excess -2.3 mmol/L (-2.0-2.0)
[2023-01-27] MEDS ORDERED: GABAPENTIN 300 MG CAP PO SCH (14:00)
[2023-01-27] MEDS ORDERED: SODIUM BICARBONATE 8.4 % INJ 50ML VIAL IV ONE (14:15)
[2023-01-27] MEDS ORDERED: methylPREDNISolone SOD SUCC 40 MG/ML VL IV ONE (14:15)
[2023-01-27] MEDS: FUROSEMIDE 100 MG/10ML VIAL IV SCH ×2 (14:44→18:43)
[2023-01-27 16:38] LABS: Base Excess -0.2 mmol/L (-2.0-2.0)
[2023-01-27] MEDS: ACCU-CHEK COMFORT CURVE STRIP VI SCH ×2 (17:00→22:06)
[2023-01-27] MEDS: InsuLIN REG 1unit/0.01ml Soln (100units/ml) SC SCH ×2 (18:44→22:30)
[2023-01-27] MEDS: methylPREDNISolone SOD SUCC 40 MG/ML VL IV SCH (22:28)
[2023-01-27] MEDS: HEPARIN SODIUM (PORCINE) 5000 UNITS/ML 1ML VIAL SC SCH (22:29)
[2023-01-27] MEDS: QUEtiapine FUMARATE 25 MG TAB PO SCH (22:29)
[2023-01-28] VITALS (13 sets, daily range): BP systolic 108–159; BP diastolic 44–79; PULSE 56–87; RESP 17–24; O2SAT 91–100
[2023-01-28 00:04] LABS: Alanine Aminotransferase 13 U/L (7-40); Albumin 3.6 g/dL (3.2-4.8); Alkaline Phosphatase 58 U/L (46-116); Anion Gap 8 (5-15); Aspartate Aminotransferase < 8 U/L (13-40); BUN/Creatinine Ratio 18.7 (10.0-20.0); Calcium 8.6 mg/dL (8.5-10.1); Carbon Dioxide 26 mmol/L (20-30); Chloride 100 mmol/L (98-107); Glucose 242 mg/dL (74-106); Sodium 134 mmol/L (136-145)
[2023-01-28 00:05] LABS: Total Protein 6.5 g/dL (5.7-8.2)
[2023-01-28 00:06] LABS: Bilirubin, Total 0.2 mg/dL (0.2-1.0)
[2023-01-28 00:11] LABS: Blood Urea Nitrogen 64 mg/dL (9-23); Potassium 5.7 mmol/L (3.5-5.1)
[2023-01-28] MEDS: SODIUM ZIRCONIUM CYCL 10 GM PAK PO ONE ×2 (01:16→01:24)
[2023-01-28] MEDS: IPRATROPIUM BROM 0.5 MG/2.5ML INH SOL NEB SCH ×6 (02:00→22:41)
[2023-01-28] MEDS: ALBUTEROL MEDNEB 2.5 mg/3ml NEB NEB SCH ×6 (02:00→22:41)
[2023-01-28] MEDS ORDERED: InsuLIN REG 1unit/0.01ml Soln (100units/ml) IV ONE (04:00)
[2023-01-28] MEDS ORDERED: SODIUM BICARBONATE 8.4 % INJ 50ML VIAL IV ONE (04:00)
[2023-01-28] MEDS ORDERED: DEXTROSE (50%) 50ML SYRG IV ONE (04:00)
[2023-01-28] MEDS ORDERED: CALCIUM GLUC 1,000mg/50ml-NS 50 ML IV ONE (04:00)
[2023-01-28 05:25] LABS: Alanine Aminotransferase 12 U/L (7-40); Albumin 3.1 g/dL (3.2-4.8); Alkaline Phosphatase 52 U/L (46-116); Anion Gap 5 (5-15); Aspartate Aminotransferase < 8 U/L (13-40); BUN/Creatinine Ratio 25.7 (10.0-20.0); Bilirubin, Total 0.2 mg/dL (0.2-1.0); Calcium 8.3 mg/dL (8.5-10.1); Carbon Dioxide 32 mmol/L (20-30); Chloride 99 mmol/L (98-107); Glucose 309 mg/dL (74-106); Sodium 136 mmol/L (136-145); Total Protein 5.6 g/dL (5.7-8.2)
[2023-01-28 05:47] LABS: Blood Urea Nitrogen 89 mg/dL (9-23); Potassium 5.8 mmol/L (3.5-5.1)
[2023-01-28 06:22] LABS: Basophils # (auto) 0 10 ^3/uL (0-0.2); Basophils % (auto) 0.1 % (0.0-2.0); Eosinophils # (auto) 0 10 ^3/uL (0-0.8); Hemoglobin 7.6 g/dL (12.2-16.2); Monocytes # (auto) 0.1 10 ^3/uL (0-1.3); Neutrophils # (auto) 6.8 10 ^3/uL (1.6-8.6); White Blood Cell 7.5 10^3/uL (4.4-10.8)
[2023-01-28 06:24] LABS: Hematocrit 23.7 % (36.0-46.0); Lymphocytes # (auto) 0.6 10 ^3/uL (0.4-5.4); Lymphocytes % (auto) 7.5 % (10.0-50.0); Mean Corpuscular Hemoglobin 27.1 pg (28.0-32.0); Mean Corpuscular Hgb Conc. 32.2 g/dL (32.0-36.0); Mean Corpuscular Volume 84.4 fL (80.0-100.0); Monocytes % (auto) 1.4 % (0.0-12.0); Red Blood Cells 2.81 10^6/uL (4.0-5.20)
[2023-01-28] MEDS: FUROSEMIDE 100 MG/10ML VIAL IV SCH ×3 (06:30→22:22)
[2023-01-28] MEDS: ACCU-CHEK COMFORT CURVE STRIP VI SCH ×4 (06:42→22:09)
[2023-01-28] MEDS: InsuLIN REG 1unit/0.01ml Soln (100units/ml) SC SCH ×4 (06:58→22:29)
[2023-01-28 07:19] LABS: Base Excess 3.2 mmol/L (-2.0-2.0)
[2023-01-28 08:51] LABS: Chloride 98 mmol/L (98-107); Potassium 5.3 mmol/L (3.5-5.1); Sodium 136 mmol/L (136-145)
[2023-01-28 08:52] LABS: Anion Gap 6 (5-15); Carbon Dioxide 32 mmol/L (20-30)
[2023-01-28 08:57] LABS: BUN/Creatinine Ratio 22.5 (10.0-20.0); Glucose 229 mg/dL (74-106)
[2023-01-28 08:58] LABS: Blood Urea Nitrogen 78 mg/dL (9-23)
[2023-01-28] MEDS ORDERED: VANCOMYCIN 1GM/250ML 250 ML IV ONE (09:30)
[2023-01-28] MEDS ORDERED: FUROSEMIDE 20 MG/2 ML VIAL IV SCH (10:00)
[2023-01-28] MEDS: methylPREDNISolone SOD SUCC 40 MG/ML VL IV SCH ×2 (10:21→22:22)
[2023-01-28] MEDS: CITALOPRAM HYDROBR 20 MG TAB PO SCH (10:21)
[2023-01-28] MEDS: DONEPEZIL HYDROCHLORIDE 5 MG TAB PO SCH (10:22)
[2023-01-28] MEDS: SERTRALINE HCL 50 MG TAB PO SCH (10:22)
[2023-01-28] MEDS: HEPARIN SODIUM (PORCINE) 5000 UNITS/ML 1ML VIAL SC SCH ×2 (10:24→22:29)
[2023-01-28] MEDS: CEFEPIME 1GM/ 50ML 50 ML IV SCH (10:49)
[2023-01-28] MEDS: SODIUM ZIRCONIUM CYCL 10 GM PAK PO SCH ×2 (14:15→22:24)
[2023-01-28] MEDS ORDERED: FEXO-226 PO (15:58)
[2023-01-28] MEDS ORDERED: FURO40TA4 PO (15:58)
[2023-01-28] MEDS ORDERED: CALC667C PO (15:59)
[2023-01-28 18:51] LABS: Alanine Aminotransferase 12 U/L (7-40); Alkaline Phosphatase 59 U/L (46-116); Anion Gap 7 (5-15); Aspartate Aminotransferase 12 U/L (13-40); BUN/Creatinine Ratio 19.4 (10.0-20.0); Calcium 8.8 mg/dL (8.5-10.1); Carbon Dioxide 29 mmol/L (20-30); Chloride 97 mmol/L (98-107); Glucose 212 mg/dL (74-106); Potassium 5.1 mmol/L (3.5-5.1); Sodium 133 mmol/L (136-145)
[2023-01-28 18:52] LABS: Bilirubin, Total 0.3 mg/dL (0.2-1.0)
[2023-01-28 18:56] LABS: Basophils # (auto) 0 10 ^3/uL (0-0.2); Basophils % (auto) 0.1 % (0.0-2.0); Eosinophils # (auto) 0 10 ^3/uL (0-0.8); Mean Corpuscular Hgb Conc. 31.4 g/dL (32.0-36.0); Monocytes # (auto) 0.4 10 ^3/uL (0-1.3); Red Blood Cells 3.23 10^6/uL (4.0-5.20)
[2023-01-28 18:58] LABS: Hematocrit 27.2 % (36.0-46.0); Hemoglobin 8.5 g/dL (12.2-16.2); Lymphocytes # (auto) 0.5 10 ^3/uL (0.4-5.4); Lymphocytes % (auto) 2.9 % (10.0-50.0); Mean Corpuscular Hemoglobin 26.4 pg (28.0-32.0); Mean Corpuscular Volume 84.2 fL (80.0-100.0); Monocytes % (auto) 2.6 % (0.0-12.0); Neutrophils # (auto) 15.4 10 ^3/uL (1.6-8.6); Neutrophils % (auto) 94.4 % (37.0-80.0); Red Cell Distribution Width 18.3 % (11.8-14.3); White Blood Cell 16.3 10^3/uL (4.4-10.8)
[2023-01-28 19:23] LABS: Blood Urea Nitrogen 65 mg/dL (9-23)
[2023-01-28] MEDS ORDERED: hydrALAZINE HCL 20 MG/ML VL IV PRN (19:30)
[2023-01-28 19:55] LABS: Albumin 3.8 g/dL (3.2-4.8)
[2023-01-28] MEDS: QUEtiapine FUMARATE 25 MG TAB PO SCH (22:24)
[2023-01-28] MEDS: LINEZOLID 600MG/300ML 300 ML IV SCH (22:25)
[2023-01-29] VITALS (11 sets, daily range): BP systolic 136; BP diastolic 63; PULSE 80–106; RESP 16–24; TEMP 98.2; O2SAT 94–100
[2023-01-29] MEDS: ALBUTEROL MEDNEB 2.5 mg/3ml NEB NEB SCH ×5 (02:27→18:42)
[2023-01-29] MEDS: IPRATROPIUM BROM 0.5 MG/2.5ML INH SOL NEB SCH ×5 (02:27→18:42)
[2023-01-29 04:18] LABS: Hematocrit 27.3 % (36.0-46.0); Hemoglobin 8.8 g/dL (12.2-16.2); Mean Corpuscular Hemoglobin 27.1 pg (28.0-32.0); Mean Corpuscular Hgb Conc. 32.4 g/dL (32.0-36.0); Mean Corpuscular Volume 83.8 fL (80.0-100.0); Red Blood Cells 3.26 10^6/uL (4.0-5.20); White Blood Cell 14.2 10^3/uL (4.4-10.8)
[2023-01-29 04:24] LABS: Calcium 8.5 mg/dL (8.7-10.4); Chloride 95 mmol/L (98-107); Potassium 5.2 mmol/L (3.5-5.1); Sodium 133 mmol/L (136-145)
[2023-01-29 04:25] LABS: Anion Gap 8 (5-15); Carbon Dioxide 30 mmol/L (20-30)
[2023-01-29 04:30] LABS: BUN/Creatinine Ratio 22.9 (10.0-20.0); Blood Urea Nitrogen 73 mg/dL (9-23); Glucose 272 mg/dL (74-106)
[2023-01-29 04:44] LABS: Band Neutrophils % (manual) 0; Basophils % (manual) 0 (0.0-2.0); Blast Cells 0; Eosinophils % (manual) 0 (0-7); Metamyelocytes % 0; Myelocytes % 0; Promyelocytes % 0; Reactive Lymphocytes 0
[2023-01-29] MEDS: FUROSEMIDE 100 MG/10ML VIAL IV SCH ×2 (06:09→14:02)
[2023-01-29] MEDS: ACCU-CHEK COMFORT CURVE STRIP VI SCH ×3 (07:05→17:07)
[2023-01-29] MEDS: InsuLIN REG 1unit/0.01ml Soln (100units/ml) SC SCH ×3 (07:16→17:52)
[2023-01-29 07:21] LABS: Lymphocytes % (manual) 1 (10.0-50.0); Monocytes % (manual) 1 (0-12); Platelet Estimate Adequate
[2023-01-29 07:22] LABS: RBC Morphology Normal
[2023-01-29] MEDS ORDERED: NIFEdipine ER 30 MG TAB PO SCH (10:00)
[2023-01-29] MEDS: SODIUM ZIRCONIUM CYCL 10 GM PAK PO SCH (10:23)
[2023-01-29] MEDS: SERTRALINE HCL 50 MG TAB PO SCH (10:24)
[2023-01-29] MEDS: CITALOPRAM HYDROBR 20 MG TAB PO SCH (10:25)
[2023-01-29] MEDS: DONEPEZIL HYDROCHLORIDE 5 MG TAB PO SCH (10:25)
[2023-01-29] MEDS: methylPREDNISolone SOD SUCC 40 MG/ML VL IV SCH (10:25)
[2023-01-29] MEDS: CEFEPIME 1GM/ 50ML 50 ML IV SCH (10:27)
[2023-01-29] MEDS: HEPARIN SODIUM (PORCINE) 5000 UNITS/ML 1ML VIAL SC SCH (10:28)
[2023-01-29] MEDS ORDERED: DOXY-448 PO (13:43)
[2023-01-29] MEDS ORDERED: LEVO750T8 PO (13:43)
[2023-01-29] MEDS ORDERED: PRED20TA2 PO (13:43)
[2023-01-29 13:59] LABS: Chloride 95 mmol/L (98-107); Potassium 4.8 mmol/L (3.5-5.1); Sodium 134 mmol/L (136-145)
[2023-01-29 14:00] LABS: Anion Gap 5 (5-15); Carbon Dioxide 34 mmol/L (20-30)
[2023-01-29 14:01] LABS: Calcium 8.7 mg/dL (8.7-10.4)
[2023-01-29] MEDS: LINEZOLID 600MG/300ML 300 ML IV SCH (14:01)
[2023-01-29 14:06] LABS: BUN/Creatinine Ratio 24.1 (10.0-20.0); Blood Urea Nitrogen 73 mg/dL (9-23); Glucose 234 mg/dL (74-106)
[2023-01-29] MEDS ORDERED: SODI10PA PO (14:59)
[2023-01-29] MEDS ORDERED: BUMEX2MG PO (14:59)
[2023-01-29] MEDS ORDERED: BUME2TAB5 PO (15:00)
[2023-01-29] MEDS ORDERED: UMEC1AER IN (16:51)
== END 2023-01-29 22:18 | disposition hospice, home (50) | DRG 189 ==
LOC: ER 11:09 → EDBD 11:09 → TELE 13:03
PROVIDERS: ADMIT Nurse Practitioner Family; ATTEND Internal Medicine Pulmonary Disease
PROC: 5A09357 Assistance with Respiratory Ventilation, Less than 24 Consecutive Hours, Continuous Positive Airway Pressure (ICD-10-PCS; principal; 2023-01-27)
PROC: 5A09357 Assistance with Respiratory Ventilation, Less than 24 Consecutive Hours, Continuous Positive Airway Pressure (ICD-10-PCS; 2023-01-28)
DX: J96.02 Acute respiratory failure with hypercapnia (principal); I50.33 Acute on chronic diastolic (congestive) heart failure; J18.9 Pneumonia, unspecified organism; I13.0 Hypertensive heart and chronic kidney disease with heart failure and stage 1 through stage 4 chronic kidney disease, or unspecified chronic kidney disease; J44.1 Chronic obstructive pulmonary disease with (acute) exacerbation; N17.9 Acute kidney failure, unspecified; J44.0 Chronic obstructive pulmonary disease with (acute) lower respiratory infection; J96.01 Acute respiratory failure with hypoxia; E66.01 Morbid (severe) obesity due to excess calories; N18.32 Chronic kidney disease, stage 3b; F03.90 Unspecified dementia, unspecified severity, without behavioral disturbance, psychotic disturbance, mood disturbance, and anxiety; E66.9 Obesity, unspecified; D63.8 Anemia in other chronic diseases classified elsewhere; E11.22 Type 2 diabetes mellitus with diabetic chronic kidney disease; E78.5 Hyperlipidemia, unspecified; E87.5 Hyperkalemia; Z83.3 Family history of diabetes mellitus; Z68.32 Body mass index [BMI] 32.0-32.9, adult; Z71.3 Dietary counseling and surveillance; I95.9 Hypotension, unspecified
CPT/HCPCS: 36415; 36600; 71045; 80048; 80053; 80202; 81001; 82805; 82962; 83605; 83735; 83880; 83930; 84132; 84484; 85007; 85025; 85027; 85610; 85730; 87040; 93005; 94640; 94660; 96365; 96375; 99291; G0378; J1100; J1815; J2543